=== PATIENT | male | born 1975 | race Caucasian/White ===

== ENCOUNTER 2017-07-16 17:19 | Emergency (ER) | payer MEDICAID ==
[~2017-07-16] VITALS: Ht 177.8 cm; Wt 63.6 kg
[2017-07-16] MEDS ORDERED: OLAN10TA3 PO (17:25)
[2017-07-16 17:26] VITALS: BP 131/83
== END 2017-07-16 20:30 | disposition left against medical advice (07) ==
LOC: EMS 17:21
DX: Z53.21 Procedure and treatment not carried out due to patient leaving prior to being seen by health care provider (principal)